=== PATIENT | female | born 1955 | race Caucasian/White ===

== ENCOUNTER → 2016-10-12 | Outpatient (CLI) | payer BC ==
--- NOTE | 2016-10-18 14:51 | MAMMOGRAPHY REPORT ---
BILATERAL DIGITAL SCREENING MAMMOGRAM WITH CAD: 10/12/2016 CLINICAL HISTORY: Routine screening. Patient has no complaints. TECHNIQUE: Bilateral CC and MLO views were obtained. Current study was also evaluated with a Comput er Aided Detection (CAD) system. COMPARISON: Comparison is made to exams dated: 12/25/2006 mammogram, 06/17/2008 mammogram, 06/14/2010 mammogram, and 08/22/2011 mammogram - [facility]. BREAST COMPOSITION: There are scattered areas of fibroglandular density in both breasts. FINDINGS: A 5 mm nodule asymmetry in the lateral right breast appears similar to prior mammograms da ting back to at least 12/25/2006, therefore likely benign. There are a few benign-appearing calcifi cations bilaterally. No new suspicious mass, architectural distortion or cluster of microcalcificat ions is seen. IMPRESSION: ACR BI-RADS CATEGORY 1: NEGATIVE There is no mammographic evidence of malignancy. A 1 year screening mammogram is recommended. The p atient will receive written notification of the results. Approximately 10% of breast cancers are not detected with mammography. A negative mammographic repor t should not delay biopsy if a clinically suggestive mass is present. Lisa Rodriguez M.D. ay/:10/18/2016 14:08:14 College Archivist: Latasha DENISE)(Deuce), [facility] letter sent: Normal 1/2 BI-RADS Code: ACR BI-RADS Category 1: Negative
== END | disposition home or self-care (01) ==
LOC: C.MAMM 12:54
PROVIDERS: ATTEND Obstetrics & Gynecology
DX: Z01.419 Encounter for gynecological examination (general) (routine) without abnormal findings (principal); Z12.31 Encounter for screening mammogram for malignant neoplasm of breast

== ENCOUNTER → 2016-10-12 | Outpatient (CLI) | payer BC | END | disposition home or self-care (01) | LOC: C.PAPS 13:41 | PROVIDERS: ATTEND Obstetrics & Gynecology | DX: Z01.419 Encounter for gynecological examination (general) (routine) without abnormal findings (principal) ==

== ENCOUNTER → 2017-08-09 | Outpatient (CLI) | payer OTHER | END | disposition home or self-care (01) | LOC: C.LABSPEC 12:16 | PROVIDERS: ATTEND Dermatology | DX: R21 Rash and other nonspecific skin eruption (principal) ==

== ENCOUNTER → 2017-08-13 | Outpatient (CLI) | payer OTHER | END | disposition home or self-care (01) | LOC: C.LABMFLN 09:13 | PROVIDERS: ATTEND Family Medicine | DX: R10.9 Unspecified abdominal pain (principal); Z29.9 Encounter for prophylactic measures, unspecified ==

== ENCOUNTER → 2017-09-24 | Outpatient (CLI) | payer OTHER | END | disposition home or self-care (01) | LOC: C.LABSPEC 17:22 | PROVIDERS: ATTEND Dermatology | DX: L71.0 Perioral dermatitis (principal) ==

== ENCOUNTER 2024-05-29 21:16 | Inpatient (IN) ==
[2024-05-29 21:58] LABS: Basophils # (auto) 0.06 K/uL (0.00-0.20); Basophils % (auto) 0.8 %; Eosinophils % (auto) 3.9 %; Hematocrit (blood only) 40.3 % (37.0-47.0); Hemoglobin 13.8 g/dl (12.0-16.0); Immature Granulocytes # (auto) 0.02 K/uL (0.01-0.20); Immature Granulocytes % (auto) 0.3 %; Lymphocytes # (auto) 3.15 K/uL (1.20-3.40); Lymphocytes % (auto) 41.4 %; Mean Corpuscular Hemoglobin 28.5 pg (25.0-34.0); Mean Corpuscular Hgb Conc 34.2 g/dL (32.0-36.0); Mean Corpuscular Volume 83.1 fL (80.0-100.0); Mean Platelet Volume 10.7 fL (9.4-12.4); Monocytes # (auto) 0.63 K/uL (0.11-0.59); Monocytes % (auto) 8.3 %; Neutrophils # (auto) 3.44 K/uL (1.40-6.50); Neutrophils % (auto) 45.3 %; Platelet Count 215 K/uL (130-400); RDW Coefficient of Variation 12.7 % (11.5-14.5); RDW Standard Deviation 38.5 fL (36.4-46.3); Red Blood Count 4.85 M/uL (4.20-5.40)
[2024-05-29 22:11] LABS: Albumin Globulin Ratio 1.4 (0.9-2); Albumin Level 4.2 gm/dl (3.4-5.0); BUN Creatinine Ratio 12.5 (10-20); Bilirubin,Total 0.3 mg/dl (0.2-1.0); Calcium 9.3 mg/dl (8.6-10.3); Creatinine Clr Calc Pharmacy 50.1 ml/min; Total Protein 7.2 gm/dl (6.0-8.3)
[2024-05-29 22:18] LABS: Troponin I High Sensitivity 3.2 pg/ml (0-14)
--- NOTE | 2024-05-29 23:26 | Emergency Department Note ---
Impression & Plan Third degree atrioventricular block, Pre-syncope ED Provider Note NAME: MARK HIDALGO AGE: 69 SEX: F : 1955 ARRIVES VIA: Walk-In INFORMANT: Patient, ED PROVIDER(S): Satish Bautista MD CHIEF COMPLAINT: Presyncope HPI: This is a 69-year-old female presenting for presyncope. Patient states that she had a 2 episodes today where she felt she was about to pass out. She cannot quantify what this meant but just felt she was going to blackout. She felt no palpitations, chest pain, shortness of breath during these episodes. She was sitting down doing nothing when this happened. She has not had this happen before. Her member was a nurse and took a blood pressure of 194/100. No previous history of hypertension. No leg swelling or leg pain otherwise. She does have chronic restless leg syndrome otherwise. ROS: See above HPI for pertinent positives & negatives. A total of 10 systems reviewed and were otherwise negative. PAST MEDICAL HISTORY: See Below PAST SURGICAL HISTORY: See Below FAMILY HISTORY: See Below SOCIAL HISTORY: See Below HOME MEDICATIONS: See Below ALLERGIES: See Below VITALS: See Below PHYSICAL EXAMINATION: General: resting comfortably in no acute distress Head: Normocephalic and atraumatic Eyes: Normal inspection, extraocular muscles intact Ear, nose, throat: Normal external exam Neck: Normal range of motion Respiratory: lungs clear to auscultation bilaterally Cardiovascular: Regular rate/rhythm, no murmur GI: soft, nontender, no guarding or rebound Extremities: nontender, moves all extremities Neuro: The patient awake and alert, appropriately conversive, no focal deficits, symmetric faces Skin: Warm, dry, and intact MEDICAL DECISION MAKING: This is a 69-year-old female sent for presyncope. Will do screening workup that includes CBC, BMP, chest x-ray, troponin and D-dimer. Low concern for acute PE but patient is concerned as her mother had PE. -Patient had a fairly long run of heart block in which patient was in sinus rhythm to nonconducting P waves from 6+ seconds with return of sinus rhythm she was symptomatic during this time -Patient placed on pads at this time -Patient second episode where she went from sinus rhythm to over 10 seconds of P waves with only 1 PVC and then into third-degree heart block followed by sinus rhythm. She was again symptomatic. Pacing was not required. -Discussed care with Dr. Nieto who states Dr. Kelly will evaluate tomorrow for ultimate decision for pacemaker -Bloodwork is reviewed showing no significant leukocytosis, anemia, electrolyte or creatinine abnormality. Negative troponin -Bedside echo performed by me showing normal EF, no RV dilation, no large pericardial effusion -Patient will admitted to hospital service, under Dr. Santana after discussion -Chest Xray independently interpreted by me showing no pneumothorax, focal opacity, or pleural effusions. Differential diagnosis: Tachydysrhythmia, heart block, PE, ACS, anemia, sepsis Independent History obtained from: [facility] interpreted by me: ECG: ECG independently interpreted by me with normal sinus rhythm, rate of 61, normal axis, normal DC, normal QRS, normal QTc, no ST segment elevations consistent with STEMI criteria Cardiac Monitoring: An order was placed for continuous cardiac monitoring. The monitor shows a rate of 80 with sinus rhythm. Critical Care Note: I have personally spent 35 minutes of critical care time in the direct management of this patient. This includes bedside care, interpretation of diagnostic studies, and testing, discussion with consultants, patient, and family members, and other required patient management activities. This 35 minutes is in excess of all separately billable procedures. Past Med/Surg History Problem List (Updated 05/30/24 @ 01:00 by Satish Bautista MD) Pre-syncope (Acute) Third degree atrioventricular block (Acute) Vitamin D insufficiency Bilateral ankle pain Bilateral bunions Vitamin B 12 deficiency Cough BMI 32.0-32.9,adult Bunion Numbness of foot Restless legs syndrome Low back pain Left hip pain Chest pain Asymptomatic postmenopausal state Encounter for mammogram to establish baseline mammogram Chronic low back pain BMI 32.0-32.9,adult Welcome to Medicare preventive visit Pelvic pain Contact with or exposure to other viral diseases Chronic left sacroiliac joint pain Blood in stool Paroxysmal supraventricular tachycardia Left flank pain Hyperlipidemia Nontoxic single thyroid nodule (Acute) Intermittent palpitations Benign essential hypertension Atypical nevi (Acute) Atrioventricular block, Mobitz type 1, Wenckebach (Acute) MTHFR mutation (Acute) Surgical History S/P tubal ligation S/P tonsillectomy H/O oral surgery Family History Father Parkinsons disease Mother Pulmonary embolism Grandmother (Maternal) Colorectal cancer Denies family history of Ovarian cancer Prostate cancer Breast cancer Social History Smoking Status: Never smoker Do You Dip or Chew Tobacco: No; Hx Alcohol Use: Yes Hx Substance Use: No Preferred Language: Greek Feels Safe at Home: Yes Seatbelt Use: always Sunscreen Use: Yes Allergies Allergies Allergy/AdvReac Type Severity Reaction Status Date / Time No Known Drug Allergies Allergy Verified 03/07/24 13:58 Home Meds Home Medications Medication Instructions Recorded Confirmed multivit,mineral-folic acid 800 1 tab PO DAILY 02/04/19 03/07/24 mcg-vit K 100 mcg-herbal no.289 tablet (Alive Once Daily Women 50 Plus) aspirin 81 mg tablet,delayed 81 mg PO .COMPLEX 07/09/23 03/07/24 release magnesium chloride PO 03/07/24 03/07/24 vit [id number]-[id number] fact-FA cmb #2 PO 03/07/24 03/07/24 [Intrinsi [id number]] Previous Rx's Medication Instructions Recorded metoprolol succinate 25 mg 25 mg PO DAILY #90 tabs 09/03/23 tablet,extended release 24 hr Results & Data (ED) Vital Signs Vital Signs - 24 hr 05/29/24 21:19 05/29/24 21:34 05/29/24 21:35 Temperature 36.6 C Temperature Source Temporal Artery Scan Pulse Rate 67 65 64 Pulse Rate from SpO2 Sensor Pulse Rhythm Regular Respiratory Rate 20 18 Respiratory Effort / Characteristics Non-Labored Spontaneous Respiratory Depth Normal Respiratory Pattern Regular Blood Pressure 172/93 H Blood Pressure Mean 119 Blood Pressure Position Sitting Pulse Oximetry 98 97 Oxygen Delivery Method Room Air Room Air Sepsis Recent Fever Within 48 Hours No Sepsis New/Unexplained Change in Mental Status N/A Sepsis Action Taken by Nursing No Action Required 05/29/24 21:39 05/29/24 22:00 05/29/24 22:32 Temperature Temperature Source Pulse Rate 61 62 0 L Pulse Rate from SpO2 Sensor 61 62 Pulse Rhythm Respiratory Rate 15 19 Respiratory Effort / Characteristics Respiratory Depth Respiratory Pattern Blood Pressure 131/79 153/78 H Blood Pressure Mean 96 101 Blood Pressure Position Pulse Oximetry 98 98 Oxygen Delivery Method Room Air Room Air Sepsis Recent Fever Within 48 Hours Sepsis New/Unexplained Change in Mental Status Sepsis Action Taken by Nursing 05/29/24 22:32 05/29/24 22:34 05/29/24 22:39 Temperature Temperature Source Pulse Rate 57 L 64 61 Pulse Rate from SpO2 Sensor 64 62 Pulse Rhythm Respiratory Rate 18 20 Respiratory Effort / Characteristics Respiratory Depth Respiratory Pattern Blood Pressure 130/87 Blood Pressure Mean 104 Blood Pressure Position Pulse Oximetry 99 99 Oxygen Delivery Method Room Air Room Air Sepsis Recent Fever Within 48 Hours Sepsis New/Unexplained Change in Mental Status Sepsis Action Taken by Nursing 05/29/24 22:51 05/29/24 23:03 05/29/24 23:03 Temperature Temperature Source Pulse Rate 62 0 L 0 L Pulse Rate from SpO2 Sensor Pulse Rhythm Respiratory Rate 15 23 Respiratory Effort / Characteristics Respiratory Depth Respiratory Pattern Blood Pressure 136/94 145/68 H Blood Pressure Mean 108 93 Blood Pressure Position Pulse Oximetry 98 Oxygen Delivery Method Room Air Sepsis Recent Fever Within 48 Hours Sepsis New/Unexplained Change in Mental Status Sepsis Action Taken by Nursing 05/29/24 23:05 05/29/24 23:30 05/30/24 00:00 Temperature Temperature Source Pulse Rate 62 64 80 Pulse Rate from SpO2 Sensor 62 64 80 Pulse Rhythm Respiratory Rate 20 22 16 Respiratory Effort / Characteristics Respiratory Depth Respiratory Pattern Blood Pressure 121/89 163/54 H 150/96 H Blood Pressure Mean 95 90 127 Blood Pressure Position Pulse Oximetry 98 98 96 Oxygen Delivery Method Room Air Room Air Room Air Sepsis Recent Fever Within 48 Hours Sepsis New/Unexplained Change in Mental Status Sepsis Action Taken by Nursing Laboratory Data 05/29/24 21:43 05/29/24 21:43 Lab Results 05/29/24 Range/Units 21:43 WBC 7.60 (4.8-10.8) K/ul RBC 4.85 (4.20-5.40) M/uL Hgb 13.8 (12.0-16.0) g/dl Hct 40.3 (37.0-47.0) % MCV 83.1 (80.0-100.0) fL MCH 28.5 (25.0-34.0) pg MCHC 34.2 (32.0-36.0) g/dL RDW Std Deviation 38.5 (36.4-46.3) fL RDW Coeff of Andrew 12.7 (11.5-14.5) % Plt Count 215 (130-400) K/uL MPV 10.7 (9.4-12.4) fL Immature Gran % (Auto) 0.3 % Neut % (Auto) 45.3 % Lymph % (Auto) 41.4 % Crowley % (Auto) 8.3 % Eos % (Auto) 3.9 % Baso % (Auto) 0.8 % Neut # (Auto) 3.44 (1.40-6.50) K/uL Lymph # (Auto) 3.15 (1.20-3.40) K/uL Crowley # (Auto) 0.63 H (0.11-0.59) K/uL Eos # (Auto) 0.30 (0.00-0.50) K/uL Baso # (Auto) 0.06 (0.00-0.20) K/uL Immature Gran # (Auto) 0.02 (0.01-0.20) K/uL D-Dimer 630 H* (0-500) ug/L FEU Sodium 141 (136-145) mmol/L Potassium 4.0 (3.5-5.1) mmol/L Chloride 107 (98-107) mmol/L Carbon Dioxide 28 (21-32) mmol/L Anion Gap 6 (3-11) BUN 14 (6-23) mg/dl Creatinine 1.12 (0.6-1.2) mg/dl Est Cr Clr Drug Dosing 50.1 ml/min eGFR 53.56 BUN/Creatinine Ratio 12.5 (10-20) Glucose 118 H (70-99(Fasting)) mg/dl Calcium 9.3 (8.6-10.3) mg/dl Total Bilirubin 0.3 (0.2-1.0) mg/dl AST 19 (13-39) U/L ALT 29 (7-52) U/L Alkaline Phosphatase 92 (34-104) U/L Troponin I High Sens 3.2 (0-14) pg/ml Total Protein 7.2 (6.0-8.3) gm/dl Albumin 4.2 (3.4-5.0) gm/dl Globulin 3.0 (2.5-4.0) gm/dl Albumin/Globulin Ratio 1.4 (0.9-2) Administered Medications Discontinued Medications Ioversol (Optiray 320 125ml) 125 ml IV ONCE ONE Stop: 05/30/24 00:59 Last Admin: 05/30/24 00:58 Dose: 118 ml Documented By: VALERIE Discharge Plan Visit Data Chief Complaint: Hypertension Stated Complaint: HIGH BP, DIZZY, NEAR SYNCOPE ED Provider: Satish Bautista Discharge Problem: Third degree atrioventricular block, Pre-syncope Forms Stand Alone Forms: My [facility] [employer] Prescriptions Prescriptions: No Action metoprolol succinate 25 mg tablet extended release 24 hr 25 mg PO DAILY Qty: 90 3RF Alive Once Daily Women 50 Plus 800-100 mcg tablet 1 tab PO DAILY aspirin 81 mg tablet,delayed release (DR/EC) 81 mg PO .COMPLEX Rx Instructions: 81 mg orally 3 x per week; vit [id number]-[id number] fact-FA cmb #2 [Intrinsi H50-Ikohax] PO magnesium chloride PO Referrals Referrals: Feliciano Naranjo MD [Primary Care Provider] -
[2024-05-29 23:52] LABS: D Dimer 630 ug/L FEU (0-500)
--- NOTE | 2024-05-30 00:39 | History & Physical Report ---
Date of Service May 30, 2024 Assessment & Plan (1) Pre-syncope: Plan: 69-year-old female with history of paroxysmal SVT on metoprolol 25 mg p.o. nightly, hyperlipidemia and factor V Leiden presenting from home with multiple episodes of presyncope. Several of these episodes witnessed in the ER, seem to be associated with heart block present on monitor. Patient with multiple dropped QRS complexes followed by escape beats. troponin is unremarkable. Electrolytes are within normal limits. Admit to PCU Maintain external pacer pads for the time being - Check Lyme serology. Patient does not spend much time outdoors and denies exposure to ticks Will hold metoprolol - cardiology consultation appreciated. Will keep patient n.p.o. in the event of possible intervention in the morning (2) Third degree atrioventricular block: Plan: Patient with heart block noted on telemetry strip, associated with episodes of dizziness and presyncope. Possibly post-viral? Admit to PCU Maintain pacer pads Hold metoprolol Check 2D echo Plan patient with history of factor V Leiden mutation, family history of VTE. Mildly elevated D-dimer at 630. CTA of the chest negative for acute PE History of Present Illness Chief Complaint: near syncope Primary Care Provider: Feliciano Naranjo MD Ainsley Mcnair is a pleasant 69yo female with history of paroxysmal SVT, hyperlipidemia, factor V Leiden and possible protein C deficiency presenting from home with episodes of presyncope. Patient had an episode this afternoon around 11:00 where she felt lightheaded as though she was going to pass out. During this episode she denies chest pain, palpitations or nausea. She did have some tunneling of her vision and blacked out for a very short period of time but does not think that she actually lost consciousness. She had another episode around 1999 while at her son and ujgzhtto-fg-dbz's house. Her lfhwcmyv-hy-ice checked her blood pressure at that time and found it to be elevated at 194/100. She repeated several minutes later her blood pressure remained elevated at 196/96. Patient was ill last week on 05/21 and 05/22 with a nonspecific viral illness. She reports dizziness, fevers, body aches initially then she developed a head cold. she does not feel as though she has completely recovered from this illness Patient denies fever, chills, chest pain, palpitations, shortness of breath. Denies abdominal pain, vomiting. Reports that she is eating well. In the ER patient with several episodes where she became dizzy. He seemed to be more frequent while she is laying on her left side. Noted to have heart block with dropped QRS complexes during her times of dizziness. Limited bedside echo performed by ER attending with no obvious structural abnormality Allergies Allergy/AdvReac Type Severity Reaction Status Date / Time No Known Drug Allergies Allergy Verified 05/30/24 01:44 Home Medications Medication Instructions Recorded Confirmed Type multivit,mineral-folic acid 800 1 tab PO DAILY 02/04/19 05/30/24 History mcg-vit K 100 mcg-herbal no.289 tablet (Alive Once Daily Women 50 Plus) aspirin 81 mg tablet,delayed 81 mg PO .COMPLEX 07/09/23 05/30/24 History release metoprolol succinate 25 mg 25 mg PO DAILY #90 tabs 09/03/23 05/30/24 Rx tablet,extended release 24 hr vit Q66-scttbel fact-FA cmb #2 PO 03/07/24 03/07/24 History [Intrinsi [id number]] magnesium chloride 64 mg 64 mg PO DAILY 05/30/24 05/30/24 History (magnesium chloride) tablet Past Med/Surg History Problem List Pre-syncope (Acute) Third degree atrioventricular block (Acute) Vitamin D insufficiency Bilateral ankle pain Bilateral bunions Vitamin B 12 deficiency Cough BMI 32.0-32.9,adult Bunion Numbness of foot Restless legs syndrome Low back pain Left hip pain Chest pain Asymptomatic postmenopausal state Encounter for mammogram to establish baseline mammogram Chronic low back pain BMI 32.0-32.9,adult Welcome to Medicare preventive visit Pelvic pain Contact with or exposure to other viral diseases Chronic left sacroiliac joint pain Blood in stool Paroxysmal supraventricular tachycardia Left flank pain Hyperlipidemia Nontoxic single thyroid nodule (Acute) Intermittent palpitations Benign essential hypertension Atypical nevi (Acute) Atrioventricular block, Mobitz type 1, Wenckebach (Acute) MTHFR mutation (Acute) Surgical History S/P tubal ligation S/P tonsillectomy H/O oral surgery Family History Father Parkinsons disease Mother Pulmonary embolism Grandmother (Maternal) Colorectal cancer Denies family history of Ovarian cancer Prostate cancer Breast cancer Social History Smoking Status: Never smoker Do You Dip or Chew Tobacco: No; Hx Alcohol Use: Yes Hx Substance Use: No Preferred Language: Malaysian Feels Safe at Home: Yes Seatbelt Use: always Sunscreen Use: Yes Review of Systems Review of Systems: All systems reviewed & are unremarkable except as noted in HPI & below Physical Exam Physical Exam: General: patient resting comfortably, NAD, non-toxic in appearance, AA&O x 4 Skin: warm, dry, intact, no rashes or lesions HEENT: NC/AT, PERRL, EOMI, anicteric sclera, conjunctiva without injection, external ear normal to inspection and nontender, nares patent, moist mucus membranes, dentition intact, no oropharyngeal lesions, neck supple, trachea midline, no LAD, no thyromegaly, no JVD Heart: +S1/S2, regular, Bradycardic,no m/r/g, external pacer pads in place on chest wall Lungs: equal air entry bilaterally, no rales/rhonchi/wheezes Abd: +BS, soft, NT/ND, no masses/organomegaly/ascites Ext: warm, 2+ pulses in UE/LE bilaterally, no clubbing/cyanosis or edema Neuro: nonfocal, patient AA&O x 4, speech intact, no facial droop, moving all extremities on command with equal strength 5/5 Results & Data Results & Data Vital Signs (Past 12 Hours) Vital Signs Temp Pulse Resp BP Pulse Ox O2 Del Method 05/30/24 00:00 80 16 150/96 H 96 Room Air 05/29/24 23:30 64 22 163/54 H 98 Room Air 05/29/24 23:05 62 20 121/89 98 Room Air 05/29/24 23:03 0 L 05/29/24 23:03 0 L 23 145/68 H 98 Room Air 05/29/24 22:51 62 15 136/94 05/29/24 22:39 61 20 99 Room Air 05/29/24 22:34 64 18 130/87 99 Room Air 05/29/24 22:32 57 L 05/29/24 22:32 0 L 05/29/24 22:00 62 19 153/78 H 98 Room Air 05/29/24 21:39 61 15 131/79 98 Room Air 05/29/24 21:35 64 18 97 Room Air 05/29/24 21:34 65 05/29/24 21:19 36.6 C 67 20 172/93 H 98 Room Air Laboratory Results Laboratory Results WBC 7.60 K/ul (4.8-10.8) 05/29/24 21:43 RBC 4.85 M/uL (4.20-5.40) 05/29/24 21:43 Hgb 13.8 g/dl (12.0-16.0) 05/29/24 21:43 Hct 40.3 % (37.0-47.0) 05/29/24 21:43 MCV 83.1 fL (80.0-100.0) 05/29/24 21:43 MCH 28.5 pg (25.0-34.0) 05/29/24 21:43 MCHC 34.2 g/dL (32.0-36.0) 05/29/24 21:43 RDW Std Deviation 38.5 fL (36.4-46.3) 05/29/24 21:43 RDW Coeff of Andrew 12.7 % (11.5-14.5) 05/29/24 21:43 Plt Count 215 K/uL (130-400) 05/29/24 21:43 MPV 10.7 fL (9.4-12.4) 05/29/24 21:43 Immature Gran % (Auto) 0.3 % 05/29/24 21:43 Neut % (Auto) 45.3 % 05/29/24 21:43 Lymph % (Auto) 41.4 % 05/29/24 21:43 Sevier % (Auto) 8.3 % 05/29/24 21:43 Eos % (Auto) 3.9 % 05/29/24 21:43 Baso % (Auto) 0.8 % 05/29/24 21:43 Neut # (Auto) 3.44 K/uL (1.40-6.50) 05/29/24 21:43 Lymph # (Auto) 3.15 K/uL (1.20-3.40) 05/29/24 21:43 Sevier # (Auto) 0.63 K/uL (0.11-0.59) H 05/29/24 21:43 Eos # (Auto) 0.30 K/uL (0.00-0.50) 05/29/24 21:43 Baso # (Auto) 0.06 K/uL (0.00-0.20) 05/29/24 21:43 Immature Gran # (Auto) 0.02 K/uL (0.01-0.20) 05/29/24 21:43 D-Dimer 630 ug/L FEU (0-500) H* 05/29/24 21:43 Sodium 141 mmol/L (136-145) 05/29/24 21:43 Potassium 4.0 mmol/L (3.5-5.1) 05/29/24 21:43 Chloride 107 mmol/L (98-107) 05/29/24 21:43 Carbon Dioxide 28 mmol/L (21-32) 05/29/24 21:43 Anion Gap 6 (3-11) 05/29/24 21:43 BUN 14 mg/dl (6-23) 05/29/24 21:43 Creatinine 1.12 mg/dl (0.6-1.2) 05/29/24 21:43 Est Cr Clr Drug Dosing 50.1 ml/min 05/29/24 21:43 eGFR 53.56 05/29/24 21:43 BUN/Creatinine Ratio 12.5 (10-20) 05/29/24 21:43 Glucose 118 mg/dl (70-99(Fasting)) H 05/29/24 21:43 Calcium 9.3 mg/dl (8.6-10.3) 05/29/24 21:43 Magnesium 2.1 mg/dl (1.7-2.4) 05/29/24 21:43 Total Bilirubin 0.3 mg/dl (0.2-1.0) 05/29/24 21:43 AST 19 U/L (13-39) 05/29/24 21:43 ALT 29 U/L (7-52) 05/29/24 21:43 Alkaline Phosphatase 92 U/L (34-104) 05/29/24 21:43 Troponin I High Sens 3.2 pg/ml (0-14) 05/29/24 21:43 Total Protein 7.2 gm/dl (6.0-8.3) 05/29/24 21:43 Albumin 4.2 gm/dl (3.4-5.0) 05/29/24 21:43 Globulin 3.0 gm/dl (2.5-4.0) 05/29/24 21:43 Albumin/Globulin Ratio 1.4 (0.9-2) 05/29/24 21:43 Impressions Chest X-Ray 05/29/24 23:29 Exam(s): XR CXR 1 VIEW EXAM: XR Chest, 1 View CLINICAL HISTORY: Reason for exam: syncope. TECHNIQUE: Frontal view of the chest. COMPARISON: None. FINDINGS: Lungs: Bilateral bronchial wall and perihilar interstitial thickening. No consolidation. Pleural space: No pleural effusion. No pneumothorax. Heart: Unremarkable. No cardiomegaly. Mediastinum: Unremarkable. Normal mediastinal contour. Bones/joints: Unremarkable. No acute fracture. Other findings: An elevated right hemidiaphragm.. IMPRESSION: Bilateral bronchial wall and perihilar mild interstitial thickening. No consolidation. An elevated right hemidiaphragm. . Electronically signed by: Hossein Javier MD, DABR 05/30/24 01:15 AM Chest CTA 05/30/24 00:39 EXAM: CT angio chest PE protocol CLINICAL HISTORY: 118 ML OPTIRAY 320, EVAL FOR PE, CHEST PAIN TECHNIQUE: Contiguous axial images were obtained from the neck base through the upper abdomen following intravenous administration of iodinated contrast material. Angiographic images were processed, 3D MIP images were acquired for interpretation. If IV contrast material had not been administered, the likelihood of detecting abnormalities relevant to the patient's condition would have been substantially decreased. Coronal and sagittal 3-D MIPs were likewise performed and indicated to increase the sensitivity of detectin diffuse clinically relevant pathology. CT scan was performed according to ALARA (as low as reasonable achievable). COMPARISON: None. FINDINGS: Adequate contrast bolus without evidence of pulmonary embolism. The central airways are patent. The lungs are clear. No pleural effusion. The heart, aorta, and pulmonary arteries are of normal size and configuration. There are no appreciable coronary artery and aortic atherosclerotic calcifications. No pericardial effusion is identified. The thyroid is unremarkable. No mediastinal, hilar, or axillary lymphadenopathy is noted. No suspicious lytic or sclerotic osseous lesions are identified. IMPRESSION: 1. No evidence of pulmonary embolism or pulmonary disease. Electronically signed by Ricky Winter 05-30-2024 02:11 AM ECG Additional Comments: EKG with normal sinus rhythm at 61 bpm, normal axis, GA = 192, QRS = 78, QTc = 394, no acute ischemic changes present Code Status & VTE Plan VTE Prophylaxis Plan VTE Prophylaxis will be ordered: Yes PG Care Time/CCT Total # of Minutes Spent Total Time Spent with Patient: Total time spent is greater than 50% in coordination of care (as documented) at patient's floor/unit and/or counseling patient: Coding Level of Care Code 60849 INT INP/OBS CARE 3/75MIN Diagnoses Pre-syncope R55 Third degree atrioventricular block I44.2
[2024-05-30] MEDS: OPTIRAY 320 125ml IV ONE (00:58)
--- NOTE | 2024-05-30 01:17 | XRay Report ---
Exam(s): XR CXR 1 VIEW EXAM: XR Chest, 1 View CLINICAL HISTORY: Reason for exam: syncope. TECHNIQUE: Frontal view of the chest. COMPARISON: None. FINDINGS: Lungs: Bilateral bronchial wall and perihilar interstitial thickening. No consolidation. Pleural space: No pleural effusion. No pneumothorax. Heart: Unremarkable. No cardiomegaly. Mediastinum: Unremarkable. Normal mediastinal contour. Bones/joints: Unremarkable. No acute fracture. Other findings: An elevated right hemidiaphragm.. IMPRESSION: Bilateral bronchial wall and perihilar mild interstitial thickening. No consolidation. An elevated right hemidiaphragm. . Electronically signed by: Hossein Javier MD, DABR 05/30/24 01:15 AM
--- NOTE | 2024-05-30 02:11 | CT Scan Report ---
EXAM: CT angio chest PE protocol CLINICAL HISTORY: 118 ML OPTIRAY 320, EVAL FOR PE, CHEST PAIN TECHNIQUE: Contiguous axial images were obtained from the neck base through the upper abdomen following intravenous administration of iodinated contrast material. Angiographic images were processed, 3D MIP images were acquired for interpretation. If IV contrast material had not been administered, the likelihood of detecting abnormalities relevant to the patient's condition would have been substantially decreased. Coronal and sagittal 3-D MIPs were likewise performed and indicated to increase the sensitivity of detectin diffuse clinically relevant pathology. CT scan was performed according to ALARA (as low as reasonable achievable). COMPARISON: None. FINDINGS: Adequate contrast bolus without evidence of pulmonary embolism. The central airways are patent. The lungs are clear. No pleural effusion. The heart, aorta, and pulmonary arteries are of normal size and configuration. There are no appreciable coronary artery and aortic atherosclerotic calcifications. No pericardial effusion is identified. The thyroid is unremarkable. No mediastinal, hilar, or axillary lymphadenopathy is noted. No suspicious lytic or sclerotic osseous lesions are identified. IMPRESSION: 1. No evidence of pulmonary embolism or pulmonary disease. Electronically signed by Ricky Winter 05-30-2024 02:11 AM
[2024-05-30 04:36] LABS: Magnesium 2.1 mg/dl (1.7-2.4)
--- NOTE | 2024-05-30 09:31 | XCELERA ---
[id number]
[2024-05-30 11:18] LABS: T4 Free Thyroxine 0.83 ng/dl (0.61-1.60)
--- NOTE | 2024-05-30 11:19 | Cardiology Consultation ---
Date of Consultation May 30, 2024 Assessment & Plan (1) Pre-syncope: (2) Third degree atrioventricular block: Plan 1. Presyncope: Her episodes of presyncope are associated with complete heart block and associated ventricular asystole. This seems to be a good correlation based on her recorded telemetry. 2. Complete heart block: Unusual in her demographic. Baseline EKG is entirely normal with a narrow QRS. She did not test positive for Lyme disease which could affect AV conduction. Thyroid studies are normal. Possibly a correlation with other viral illnesses, but this is less well-established. No evidence of myocarditis based on her echocardiogram and normal biomarkers. She does not appear to have a strong family history of conduction disease. Rare possibility of an infiltrative process such as amyloid or sarcoid, but this seems less likely in the absence of additional baseline conduction disease. She is on low- dose metoprolol. She has been on this medication for a couple of years. While this could exacerbate AV henrietta disease, I doubt this is the sole etiology. Will certainly stop the medication for now. In the absence of a known etiology or reversible cause my concern is continued and unpredictable episodes of AV block. This could result in true syncope with associated injury. I expressed this concern to the patient. I did recommend a permanent pacemaker based on the absence of a known reversible cause. She is understandably reluctant given her otherwise good health. History of Present Illness Reason for Consultation: Near syncope, heart block Requesting Physician: Max Attending Physician: Jatin Christensen MD History of Present Illness The patient is a 69-year-old woman without a known history of cardiac disease who presented to the hospital after suffering a few episodes of dizziness and presyncope. Patient states that a few days ago she did develop what she feels was an upper respiratory illness. This involved some upper respiratory symptoms and a fever. She has been improving but still has some mild symptoms and fatigue. Yesterday while sitting at her computer she had an episode of presyncope. This was not preceded by any sense of palpitation, nausea or other symptoms. Without intervention the episode resolved and she returned to her usual activity. She had a second episode later in the day which was similar in nature, duration and character. Again, no prodrome. At that time her blood pressure was measured and it was notably elevated. Based on the symptoms and the elevated blood pressure she went to the emergency room for an evaluation. While in the emergency room and on telemetry she had a recurrent episode and documented complete heart block with ventricular asystole. The episode was transient and resolved. She did not lose consciousness. She had a few other episodes which were similar since admission. She does have a history of SVT. This was documented on outpatient monitoring in 2018. These episodes did also produce some presyncope, but were associated with a rapid heart rate. She was placed on metoprolol at that time and has had few episodes. Generally speaking she is an active individual. She does not have exertional symptoms. No difficulty with breathing. No symptoms of chest pain. Currently feeling well. Allergies Allergy/AdvReac Type Severity Reaction Status Date / Time No Known Drug Allergies Allergy Verified 05/30/24 01:44 Home Medications Medication Instructions Recorded Confirmed Type multivit,mineral-folic acid 800 1 tab PO DAILY 02/04/19 05/30/24 History mcg-vit K 100 mcg-herbal no.289 tablet (Alive Once Daily Women 50 Plus) aspirin 81 mg tablet,delayed 81 mg PO .COMPLEX 07/09/23 05/30/24 History release metoprolol succinate 25 mg 25 mg PO DAILY #90 tabs 09/03/23 05/30/24 Rx tablet,extended release 24 hr vit [id number] fact-FA cmb #2 PO 03/07/24 03/07/24 History [Intrinsi [id number]] magnesium chloride 64 mg 64 mg PO DAILY 05/30/24 05/30/24 History (magnesium chloride) tablet Patient History Surgical History S/P tubal ligation S/P tonsillectomy H/O oral surgery Family History Father Parkinsons disease Mother Pulmonary embolism Grandmother (Maternal) Colorectal cancer Denies family history of Ovarian cancer Prostate cancer Breast cancer Social History Smoking Status: Never smoker Do You Dip or Chew Tobacco: No; Hx Alcohol Use: Yes Alcohol type: wine Hx Substance Use: No Preferred Language: [place] Communication Ability: Effective Rooms Director Required: No Beliefs That Will Affect Care: None Current Living Situation: Alone Feels Safe at Home: Yes Seatbelt Use: always Sunscreen Use: Yes Review of Systems Review of Systems: Per HPI Physical Exam Physical Exam: She is alert and oriented x3. Mood affect appear normal. She answered all questions appropriately. HEENT: Sclerae are anicteric. Pupils are equal and reactive to light and accommodation. Extraocular movements were intact. Neuro: Cranial nerves intact Lungs: Lungs are clear to auscultation bilaterally. There are no rales wheezes or rhonchi. She has normal respiratory effort without use of accessory muscles. There is normal pulmonary excursion. Cardiac: The rhythm was regular. S1 and S2 were normal. There are no murmurs on examination. The PMI was not markedly displaced on palpation. Extremities: Patient has bilateral radial pulses that are equal in intensity. There is no evidence cyanosis or clubbing. There was no evidence of significant peripheral edema bilaterally. Skin: There are no rashes noted on examination today. Results & Data Vital Signs (Past 12 Hours) Vital Signs Temp Pulse Pulse Resp BP BP Pulse Ox 05/30/24 11:06 36.9 C 71 18 157/95 H 94 05/30/24 07:36 79 05/30/24 07:34 62 05/30/24 07:14 36.7 C 66 18 141/83 H 98 05/30/24 04:30 68 05/30/24 04:02 36.6 C 71 18 144/81 H 97 05/30/24 03:42 83 19 145/79 H 97 05/30/24 03:26 148/80 H 05/30/24 03:21 66 22 97 05/30/24 02:48 69 20 95 05/30/24 02:37 72 05/30/24 02:30 73 21 117/71 94 05/30/24 02:06 75 21 96/74 L 96 05/30/24 01:00 79 24 133/69 97 05/30/24 00:56 0 L 05/30/24 00:30 63 17 147/77 H 96 05/30/24 00:00 80 16 150/96 H 96 05/29/24 23:30 64 22 163/54 H 98 O2 Del Method 05/30/24 11:06 Room Air 05/30/24 07:36 05/30/24 07:34 05/30/24 07:14 Room Air 05/30/24 04:30 05/30/24 04:02 Room Air 05/30/24 03:42 Room Air 05/30/24 03:26 05/30/24 03:21 Room Air 05/30/24 02:48 Room Air 05/30/24 02:37 05/30/24 02:30 Room Air 05/30/24 02:06 Room Air 05/30/24 01:00 Room Air 05/30/24 00:56 05/30/24 00:30 Room Air 05/30/24 00:00 Room Air 05/29/24 23:30 Room Air Laboratory Results Abnormal Lab Results 05/29/24 21:43 WBC 7.60 RBC 4.85 Hgb 13.8 Hct 40.3 MCV 83.1 MCH 28.5 MCHC 34.2 RDW Std Deviation 38.5 RDW Coeff of Andrew 12.7 Plt Count 215 MPV 10.7 Immature Gran % (Auto) 0.3 Neut % (Auto) 45.3 Lymph % (Auto) 41.4 [place] % (Auto) 8.3 Eos % (Auto) 3.9 Baso % (Auto) 0.8 Neut # (Auto) 3.44 Lymph # (Auto) 3.15 [place] # (Auto) 0.63 H Eos # (Auto) 0.30 Baso # (Auto) 0.06 Immature Gran # (Auto) 0.02 D-Dimer 630 H* Sodium 141 Potassium 4.0 Chloride 107 Carbon Dioxide 28 Anion Gap 6 BUN 14 Creatinine 1.12 Est Cr Clr Drug Dosing 50.1 eGFR 53.56 BUN/Creatinine Ratio 12.5 Glucose 118 H Calcium 9.3 Magnesium 2.1 Total Bilirubin 0.3 AST 19 ALT 29 Alkaline Phosphatase 92 Troponin I High Sens 3.2 Total Protein 7.2 Albumin 4.2 Globulin 3.0 Albumin/Globulin Ratio 1.4 Lyme Disease Screen Negative Diagnostic Findings Echocardiogram 05/30/2024: Normal LV systolic function. No significant valvular heart disease. Essentially normal echocardiogram. Chest CTA did not demonstrate evidence of pulmonary embolus. No notable abnormalities. ECG Additional Comments: EKG at the time of admission revealed normal sinus rhythm. Normal EKG. PG Care Time/CCT Total # of Minutes Spent Total Time Spent with Patient: Total time spent is greater than 50% in coordination of care (as documented) at patient's floor/unit and/or counseling patient: Coding Level of Care Code 87341 INT INP/OBS CARE MIN Diagnoses Pre-syncope R55 Third degree atrioventricular block I44.2
--- NOTE | 2024-05-30 12:03 | Hospitalist Progress Note ---
Date of Service May 30, 2024 Assessment & Plan (1) Pre-syncope: Plan: Transient episodes of complete heart block with ventricular standstill. Telemetry. Cardiology consultation noted. Echo is normal. Thyroid profile is normal. Metoprolol has been discontinued. (2) Third degree atrioventricular block: Plan: Transient complete heart block with ventricular standstill noted on telemetry while in the ED. Metoprolol has been discontinued. Cardiology consultation appreciated. Continue telemetry. External pacer pads are in place. 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 Will defer treatment to her PCP. Chest CTA on admission negative for PE Plan If stable, probably home May 31 off metoprolol and with a heart monitor. Admission and Anticipated Discharge Date Admission Date: May 30, 2024 Subjective Alert and oriented. External pacer pads are in place. Cardiac echo was normal. Cardiology consultation noted. Permanent pacemaker has been recommended but she is hesitant at this time. Metoprolol has been discontinued. She probably will go home with a heart monitor tomorrow, May 31, and follow-up with cardiology as an outpatient for further discussion. Review of Systems 2 Review of Systems: Constitutionalno fever or chills ENTno blurred vision, no double vision, no epistaxis, no sore throat Respiratoryno cough, no wheezing, no shortness of breath Cardiacno palpitations, no chest pain. Near syncope has occurred several times Rosa nausea, vomiting, diarrhea, melena, hematochezia GUno urinary retention, no urinary incontinence, no dysuria, no hematuria Musculoskeletalno joint pain, no muscle tenderness Skinno bruising, no rashes, no pruritus Neurono isolated weakness, no paresthesia. Psychno depression, no anxiety Physical Exam 2 Physical Exam: General-alert and oriented x3, no fever, no chills HEENT-head atraumatic and normocephalic, pupils equal and reactive to light, extraocular muscles intact Neck-no lymphadenopathy or thyromegaly, trachea midline Chest-clear to auscultation. No rales, wheezing or rhonchi Cardiac-regular rate and rhythm, normal S1 and S2 Abdomen-normal bowel sounds, no hepatosplenomegaly Extremities-no cyanosis, clubbing, or edema Neuro-cranial nerves II through XII intact, motor and sensory function within normal limits, strength symmetrical, no focal deficits Psych-normal affect, normal mood Results & Data Results & Data Vital Signs (Past 12 Hours) Vital Signs Temp Pulse Pulse Resp BP BP Pulse Ox 05/30/24 11:06 36.9 C 71 18 157/95 H 94 05/30/24 07:36 79 05/30/24 07:34 62 05/30/24 07:14 36.7 C 66 18 141/83 H 98 05/30/24 04:30 68 05/30/24 04:02 36.6 C 71 18 144/81 H 97 05/30/24 03:42 83 19 145/79 H 97 05/30/24 03:26 148/80 H 05/30/24 03:21 66 22 97 05/30/24 02:48 69 20 95 05/30/24 02:37 72 05/30/24 02:30 73 21 117/71 94 05/30/24 02:06 75 21 96/74 L 96 05/30/24 01:00 79 24 133/69 97 05/30/24 00:56 0 L 05/30/24 00:30 63 17 147/77 H 96 05/30/24 00:00 80 16 150/96 H 96 O2 Del Method 05/30/24 11:06 Room Air 05/30/24 07:36 05/30/24 07:34 05/30/24 07:14 Room Air 05/30/24 04:30 05/30/24 04:02 Room Air 05/30/24 03:42 Room Air 05/30/24 03:26 05/30/24 03:21 Room Air 05/30/24 02:48 Room Air 05/30/24 02:37 05/30/24 02:30 Room Air 05/30/24 02:06 Room Air 05/30/24 01:00 Room Air 05/30/24 00:56 05/30/24 00:30 Room Air 05/30/24 00:00 Room Air Laboratory Results 05/29/24 21:43 05/29/24 21:43 PG Care Time/CCT Total # of Minutes Spent Total Time Spent with Patient: Total time spent is greater than 50% in coordination of care (as documented) at patient's floor/unit and/or counseling patient: Coding Level of Care Code 89862 SUB INP/OBS CARE 3/50MIN Diagnoses Pre-syncope R55 Third degree atrioventricular block I44.2 Factor V deficiency D68.2
--- NOTE | 2024-05-30 15:46 | Electrocardiogram Report ---
Test Reason : Blood Pressure : */* mmHG Vent. Rate : 61 BPM Atrial Rate : 61 BPM P-R Int : 192 ms QRS Dur : 78 ms QT Int : 392 ms P-R-T Axes : 36 43 45 degrees QTcB Int : 394 ms Normal sinus rhythm Normal ECG No previous ECGs available Confirmed by Mathieu Kelly ([id number]) on 05/30/2024 3:46:08 PM Referred By: REFERRED SELF Confirmed By: Mathieu Kelly
[2024-05-31 07:52] LABS: Hematocrit (blood only) 41.7 % (37.0-47.0); Hemoglobin 14.1 g/dl (12.0-16.0); Mean Corpuscular Hemoglobin 28.3 pg (25.0-34.0); Mean Corpuscular Hgb Conc 33.8 g/dL (32.0-36.0); Mean Corpuscular Volume 83.6 fL (80.0-100.0); Mean Platelet Volume 10.5 fL (9.4-12.4); Platelet Count 205 K/uL (130-400); RDW Coefficient of Variation 12.9 % (11.5-14.5); RDW Standard Deviation 38.9 fL (36.4-46.3); Red Blood Count 4.99 M/uL (4.20-5.40); White Blood Count 6.62 K/ul (4.8-10.8)
[2024-05-31 07:57] LABS: BUN Creatinine Ratio 15.3 (10-20); Calcium 8.9 mg/dl (8.6-10.3); Creatinine Clr Calc Pharmacy 57.3 ml/min; Potassium 4.2 mmol/L (3.5-5.1)
[2024-05-31] MEDS: ACETAMINOPHEN 325 MG TAB PO PRN (12:00)
--- NOTE | 2024-05-31 12:48 | Hospitalist Progress Note ---
Date of Service May 31, 2024 Assessment & Plan (1) Pre-syncope: Plan: Recurrent episodes of complete heart block with ventricular standstill. Telemetry. Cardiology consultation noted. Echo is normal. Thyroid profile is normal. Metoprolol has been discontinued. PPM will be placed on June 02. Metoprolol can be restarted after the pacemaker is inserted and hopefully she can go home on June 03 (2) Third degree atrioventricular block: Plan: Transient complete heart block with ventricular standstill continues to occur and noted on telemetry strips. 1 episode approached 10 seconds and she was near syncopal. Metoprolol has been discontinued. Cardiology consultation appreciated. Permanent pacemaker insertion scheduled for June 02. Metoprolol can be restarted after the pacemaker is in place for control of her recurrent SVT. Continue telemetry. External pacer pads are in place. 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 Will defer treatment to her PCP. Chest CTA on admission negative for PE Plan Permanent pacemaker insertion on June 02. Metoprolol can be restarted afterwards. Hopefully she can go home on June 03 Admission and Anticipated Discharge Date Admission Date: May 30, 2024 Subjective Alert and oriented to the time of my examination. Telemetry continues to reveal episodes of atrial activity with ventricular standstill. 1 episode approached 10 seconds and the patient had a near syncopal episode. She has been off the metoprolol now since admission. She needs a permanent cardiac pacemaker placed and this will be done on June 02. The patient is agreeable to this approach. Metoprolol can be restarted after the pacemaker is in place for control of recurrent PSVT Review of Systems 2 Review of Systems: Constitutionalno fever or chills ENTno blurred vision, no double vision, no epistaxis, no sore throat Respiratoryno cough, no wheezing, no shortness of breath Cardiacno palpitations, no chest pain. Near syncope has occurred several times Rosa nausea, vomiting, diarrhea, melena, hematochezia GUno urinary retention, no urinary incontinence, no dysuria, no hematuria Musculoskeletalno joint pain, no muscle tenderness Skinno bruising, no rashes, no pruritus Neurono isolated weakness, no paresthesia. Psychno depression, no anxiety Physical Exam 2 Physical Exam: General-alert and oriented x3, no fever, no chills HEENT-head atraumatic and normocephalic, pupils equal and reactive to light, extraocular muscles intact Neck-no lymphadenopathy or thyromegaly, trachea midline Chest-clear to auscultation. No rales, wheezing or rhonchi Cardiac-regular rate and rhythm, normal S1 and S2 Abdomen-normal bowel sounds, no hepatosplenomegaly Extremities-no cyanosis, clubbing, or edema Neuro-cranial nerves II through XII intact, motor and sensory function within normal limits, strength symmetrical, no focal deficits Psych-normal affect, normal mood Results & Data Results & Data Vital Signs (Past 12 Hours) Vital Signs Temp Pulse Pulse Resp BP Pulse Ox O2 Del Method 05/31/24 11:01 36.9 C 67 18 144/90 H 94 Room Air 05/31/24 07:26 61 05/31/24 07:03 37.1 C 73 17 110/74 93 Room Air 05/31/24 03:26 36.8 C 61 18 107/69 95 Room Air Laboratory Results 05/31/24 06:58 05/31/24 06:58 PG Care Time/CCT Total # of Minutes Spent Total Time Spent with Patient: Total time spent is greater than 50% in coordination of care (as documented) at patient's floor/unit and/or counseling patient: Coding Level of Care Code 15947 SUB INP/OBS CARE 2/35MIN Diagnoses Pre-syncope R55 Third degree atrioventricular block I44.2 Factor V deficiency D68.2
--- NOTE | 2024-05-31 15:01 | Cardiology Progress Note ---
Date of Service May 31, 2024 Assessment & Plan (1) Third degree atrioventricular block: (2) Pre-syncope: Admission and Anticipated Discharge Date Admission Date: May 30, 2024 Supervising Physician Co-Signing Physician Notes Plan reviewed with Dr. Kelly-for PPM on Sunday. Keep on monitor for now. Subjective Called with long pauses and CHB. Pt in bed without symptoms. Pt remains agreeable for PPM on Sunday with Dr. Kelly. Questions answered. Pt and daughter in room. Review of Systems Review of Systems: All systems reviewed & are unremarkable except as noted in HPI & below Physical Exam Physical Exam: AAO x 3 in NAD Respiratory: CTA b/l Cardiovascular: regular no murmurs Results & Data Vital Signs (Past 12 Hours) Vital Signs Temp Pulse Pulse Resp BP Pulse Ox O2 Del Method 05/31/24 14:00 76 05/31/24 11:01 36.9 C 67 18 144/90 H 94 Room Air 05/31/24 07:26 61 05/31/24 07:03 37.1 C 73 17 110/74 93 Room Air 05/31/24 03:26 36.8 C 61 18 107/69 95 Room Air Laboratory Results Abnormal lab results 05/31/24 Range/Units 06:58 Chloride 111 H (98-107) mmol/L Glucose 117 H (70-99(Fasting)) mg/dl
--- NOTE | 2024-06-01 10:29 | Cardiology Progress Note ---
Date of Service June 01, 2024 Assessment & Plan (1) Third degree atrioventricular block: (2) Pre-syncope: Plan for DDD PPM tomorrow with Dr. Kelly no changes made NPO P MN tonight Admission and Anticipated Discharge Date Admission Date: May 30, 2024 Subjective No new issues overnight. Relocated to a new private room. Awaiting PPM tomorrow. Pt in room with her 2 sons. Questions answered. Review of Systems Review of Systems: All systems reviewed & are unremarkable except as noted in HPI & below Physical Exam Physical Exam: AAO x 3 in NAD no change in exam Results & Data Vital Signs (Past 12 Hours) Vital Signs Temp Pulse Pulse Resp BP Pulse Ox O2 Del Method 06/01/24 08:31 36.8 C 77 18 143/91 H 96 Room Air 06/01/24 05:50 66 06/01/24 02:40 36.8 C 63 18 118/72 95 Room Air 05/31/24 22:53 36.8 C 73 18 154/83 H 99 Room Air 05/31/24 22:45 65 Medications Administered Current Inpatient Medications Acetaminophen (Acetaminophen 325 Mg Tab) 650 mg PO Q4H PRN PRN Reason: Pain or Fever Stop: 06/29/24 04:09 Last Admin: 05/31/24 12:00 Dose: 650 mg
--- NOTE | 2024-06-01 14:34 | Hospitalist Progress Note ---
Date of Service June 01, 2024 Assessment & Plan (1) Pre-syncope: Plan: Recurrent episodes of complete heart block with ventricular standstill. Telemetry. Cardiology consultation noted. Echo is normal. Thyroid profile is normal. Metoprolol has been discontinued. PPM will be placed on June 02. Metoprolol can be restarted after the pacemaker is inserted and hopefully she can go home on June 03 (2) Third degree atrioventricular block: Plan: Transient complete heart block with ventricular standstill continues to occur and noted on telemetry strips. 1 episode approached 10 seconds and she was near syncopal. Metoprolol has been discontinued. Cardiology consultation appreciated. Permanent pacemaker insertion scheduled for June 02. Metoprolol can be restarted after the pacemaker is in place for control of her recurrent SVT. Continue telemetry. External pacer pads are in place. 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 Will defer treatment to her PCP. Chest CTA on admission negative for PE Plan Permanent pacemaker insertion tomorrowJune 02. Metoprolol can be restarted afterwards. Hopefully she can go home on June 03 Admission and Anticipated Discharge Date Admission Date: May 30, 2024 Subjective No recurrent third-degree AV block since documentation yesterday. She remains off metoprolol. Cardiology entry noted. Permanent pacemaker placement tomorrowJune 02 Review of Systems 2 Review of Systems: Constitutionalno fever or chills ENTno blurred vision, no double vision, no epistaxis, no sore throat Respiratoryno cough, no wheezing, no shortness of breath Cardiacno palpitations, no chest pain. Near syncope has occurred several times Rosa nausea, vomiting, diarrhea, melena, hematochezia GUno urinary retention, no urinary incontinence, no dysuria, no hematuria Musculoskeletalno joint pain, no muscle tenderness Skinno bruising, no rashes, no pruritus Neurono isolated weakness, no paresthesia. Psychno depression, no anxiety Physical Exam 2 Physical Exam: General-alert and oriented x3, no fever, no chills HEENT-head atraumatic and normocephalic, pupils equal and reactive to light, extraocular muscles intact Neck-no lymphadenopathy or thyromegaly, trachea midline Chest-clear to auscultation. No rales, wheezing or rhonchi Cardiac-regular rate and rhythm, normal S1 and S2 Abdomen-normal bowel sounds, no hepatosplenomegaly Extremities-no cyanosis, clubbing, or edema Neuro-cranial nerves II through XII intact, motor and sensory function within normal limits, strength symmetrical, no focal deficits Psych-normal affect, normal mood Results & Data Results & Data Vital Signs (Past 12 Hours) Vital Signs Temp Pulse Pulse Resp BP Pulse Ox O2 Del Method 06/01/24 10:55 66 18 142/82 H 96 Room Air 06/01/24 08:31 36.8 C 77 18 143/91 H 96 Room Air 06/01/24 05:50 66 06/01/24 02:40 36.8 C 63 18 118/72 95 Room Air Laboratory Results 05/31/24 06:58 05/31/24 06:58 PG Care Time/CCT Total # of Minutes Spent Total Time Spent with Patient: Total time spent is greater than 50% in coordination of care (as documented) at patient's floor/unit and/or counseling patient: Coding Level of Care Code 53959 SUB INP/OBS CARE 2/35MIN Diagnoses Pre-syncope R55 Third degree atrioventricular block I44.2 Factor V deficiency D68.2
--- NOTE | 2024-06-02 07:33 | Pre Anesthesia Assessment ---
Date of Service June 02, 2024 Pre Sedation Assessment Vital Signs Temp Pulse Pulse Resp BP BP BP 06/02/24 07:14 70 18 169/100 H 06/02/24 03:00 36.8 C 71 16 124/75 06/01/24 23:11 36.8 C 71 16 127/75 06/01/24 21:59 71 06/01/24 19:31 36.5 C 72 18 169/91 H 06/01/24 15:57 36.9 C 70 19 145/86 H 06/01/24 13:30 74 06/01/24 10:55 66 18 142/82 H 06/01/24 08:31 36.8 C 77 18 143/91 H Pulse Ox O2 Del Method 06/02/24 07:14 95 Room Air 06/02/24 03:00 95 Room Air 06/01/24 23:11 94 Room Air 06/01/24 21:59 06/01/24 19:31 98 Room Air 06/01/24 15:57 94 Room Air 06/01/24 13:30 06/01/24 10:55 96 Room Air 06/01/24 08:31 96 Room Air Cardiovascular + regular rate and + regular rhythm Respiratory + respiratory effort normal Pre-Sedation Airway Assessment Smoking Status: Never smoker Hx Sleep Apnea: No Hx Difficult Intubation: No Short, Thick Neck: No Thyromental Distance: > or= 3.5 Finger Breadths Oral Cavity: + WNL Mallampati Class: III ASA: ASA3 NPO Status Date of Last Intake of Solid Food: 06/01/24 Procedure Planning Contraindications for Sedation: none Current Medications Reviewed: Yes Notes The planned sedation has been discussed with the patient. Informed Consent was obtained. I have identified the patient, determined the appropriateness of sedation and have assessed the patient immediately prior to the procedure. All medicine(s) and interventions are by my order.
[2024-06-02] MEDS: BUPIVACAINE 0.25% PF 30 ML VIAL ONE (08:08)
[2024-06-02] MEDS: LIDOCAINE 1% LOCAL 20 ML VIAL ONE (08:08)
[2024-06-02] MEDS: WATER, STERILE FOR INJ 10 ML VIAL ONE (08:08)
[2024-06-02] MEDS: VANCOMYCIN HCL 1000MG/20ML VIAL ONE (08:08)
[2024-06-02] MEDS: ceFAZolin 330 MG/ML 1 GM VIAL ONE (08:09)
[2024-06-02] MEDS: diphenhydrAMINE 50 MG/ML VIAL ONE (08:37)
[2024-06-02] MEDS: fentaNYL citrate PF 100 MCG/2 ML VIAL ONE (09:00)
[2024-06-02] MEDS: MIDAZOLAM HCL 5 MG/ML 1 ML VIAL ONE (09:01)
--- NOTE | 2024-06-02 09:12 | Electrophysiology Report ---
Date of Service June 02, 2024 Electrophysiology Procedure Electrophysiology Procedure Report Procedure performed: Implantation of dual-chamber permanent pacemaker Staff foreman/pile driving and erection: Mathieu Kelly MD Indication: The patient is a 69-year-old woman who was admitted with presyncope and intermittent heart block. She was felt to be a good candidate for a permanent pacemaker due to symptomatic nonreversible AV node dysfunction. A dual-chamber device was selected as she is currently in sinus rhythm and wished to maintain AV synchrony. Procedure in detail: The patient was informed of the risks benefits and alternatives to the intended procedure and she wished to proceed. She was taken to the electrophysiology suite in a fasting state. A preoperative antibiotic had been administered. The patient was monitored electrocardiographically throughout today's procedure and conscious sedation was administered per protocol. The left upper pectoral area was prepped and draped in usual sterile fashion. This area was anesthetized using subcutaneous administration of a xylocaine solution. An incision was made at this site and carried down to the prepectoralis fascia using sharp dissection. Electrocautery was also employed for dissection as well as for hemostasis. A device pocket was fashioned tissues above the pectoralis muscle. Subsequent to this maneuver the left axillary vein was accessed using modified Seldinger technique. A sheath was placed over guidewire and used to facilitate passage of a guiding catheter for mapping of the interventricular septum. Once an appropriate location was identified a pacing lead was advanced into the interventricular septum until the appropriate electrophysiologic characteristics were obtained. At this point the guiding catheter was removed. The proximal portion of the lead was then sutured the prepectoralis fascia using nonabsorbable suture. A sheath was placed over the remaining guidewire and used to facilitate passage of a pacing lead to the right atrium under fluoroscopic guidance. Adequate sensing and threshold parameters were obtained prior to active fixation of this lead to the endocardial surface. The proximal portion of the leads were then sutured the prepectoral fascia using nonabsorbable suture. The device pocket was irrigated with antibiotic solution. The leads were then attached to the device. The device and leads were then placed in the pocket and pocket was closed in 3 layers of absorbable suture. Steri-Strips and sterile dressing were applied. The device was tested noninvasively prior to conclusion the procedure. The patient tolerated procedure well there no immediate complications. Equipment used: New pulse generator: [employer]. Model number: [id number] serial number [id number] Right atrial lead: [employer]. Model number: 5076 serial number [id number] Right ventricular lead: [employer]. Model number: 3830 serial number [id number] Measured data: Right atrial lead: P waves measured 2.4 mV. Pacing threshold was 0.75 V at 0.4 ms with a pacing appearance of 798 ohms Right ventricular lead: R waves measured 12.1 mV. Pacing threshold was 0.75 V at 0.4 ms with a pacing impedance of 741 ohms Impression: Successful implantation of dual-chamber permanent pacemaker with left bundle pacing lead [facility] Electrophysiology codes Pacing Procedure 1: Pacin Insert/Replace Pacer A & V PG Moderate Sedation Codes Moderate Sedation Codes Procedure 1: Sedation/Anesthesia: 95589 Mod Sedation by the same physician;Init15 Min Child Age 5 & Up Procedure 2: Sedation/Anesthesia: 48520 Mod Sedation by the same physician; Ea [id number] Minutes
--- NOTE | 2024-06-02 09:12 | Post Anesthesia Assessment ---
Date of Service June 02, 2024 Post Sedation Assessment Vital Signs Temp Pulse Pulse Resp BP BP BP 06/02/24 07:14 70 18 169/100 H 06/02/24 03:00 36.8 C 71 16 124/75 06/01/24 23:11 36.8 C 71 16 127/75 06/01/24 21:59 71 06/01/24 19:31 36.5 C 72 18 169/91 H 06/01/24 15:57 36.9 C 70 19 145/86 H 06/01/24 13:30 74 06/01/24 10:55 66 18 142/82 H Pulse Ox O2 Del Method 06/02/24 07:14 95 Room Air 06/02/24 03:00 95 Room Air 06/01/24 23:11 94 Room Air 06/01/24 21:59 06/01/24 19:31 98 Room Air 06/01/24 15:57 94 Room Air 06/01/24 13:30 06/01/24 10:55 96 Room Air Recovery Score Activity: Moves 4 extremities Respiration: Deep Breath/Cough Circulation: +/-20% PreAnes Value Consciousness: Arouseable (by name) Oxygen Saturation: O2 needed for >90% Discharge Sedation Level of Care: Fast Track Phase II Post Sedation Plan On clinical assessment, the patient appears to have tolerated the sedation without complications. Patient is recovering as anticipated. Patient will continue to be monitored by nursing and may be discharged when sedation discharge criteria are met per below protocol. Upon Completions of procedure up to 15 minutes continue every 5 minute vital signs and the P.A.R. score; then discharge to a Phase I or Fast Track to Phase II per the following guidelines: * Discharge Patient to appropriate Phase II area if PAR is 8 or greater or return to pre- procedure baseline. The post - procedure orders will be as directed. * If PAR score is less than 8 or not return to pre-procedure baseline then patient will follow Phase I monitoring till PAR is reached for Phase II. The Phase I may be done in procedure room or may call to secure a Phase I area. * If naloxone or flumazenil are used for reversal, hold in Phase I for continued monitoring from when last reversal dose was given for a minimum of 60 minutes or longer pending the nurse and/or physician discretion of patient condition before discharge to Phase II. Please call the Sedation Physician to re-evaluate and complete post-note for discharge to Phase II area. Do NOT discharge from procedure sedation or Phase 1 until post- sedation evaluation note is complete by procedure /sedation MD Sedation Discharge Instructions to be given to the patient at discharge to home.
[2024-06-02 10:02] VITALS: O2SAT 96
--- NOTE | 2024-06-02 10:52 | Electrocardiogram Report ---
Test Reason : Blood Pressure : */* mmHG Vent. Rate : 69 BPM Atrial Rate : 69 BPM P-R Int : 176 ms QRS Dur : 110 ms QT Int : 434 ms P-R-T Axes : 58 -64 88 degrees QTcB Int : 465 ms AV dual-paced rhythm with occasional , and consecutive sinus complexes and with occasional Premature ventricular complexes Abnormal ECG When compared with ECG of 29-May-2024 21:30, Electronic ventricular pacemaker has replaced Sinus rhythm Confirmed by Bryan Nieto ([id number]) on 06/02/2024 10:52:17 AM Referred By: REFERRED SELF Confirmed By: Bryan Nieto
[2024-06-02 11:05] LABS: Basophils # (auto) 0.05 K/uL (0.00-0.20); Basophils % (auto) 0.7 %; Eosinophils # (auto) 0.17 K/uL (0.00-0.50); Eosinophils % (auto) 2.2 %; Hematocrit (blood only) 45.5 % (37.0-47.0); Hemoglobin 15.5 g/dl (12.0-16.0); Immature Granulocytes # (auto) 0.03 K/uL (0.01-0.20); Immature Granulocytes % (auto) 0.4 %; Lymphocytes # (auto) 1.91 K/uL (1.20-3.40); Lymphocytes % (auto) 25.3 %; Mean Corpuscular Hemoglobin 28.7 pg (25.0-34.0); Mean Corpuscular Hgb Conc 34.1 g/dL (32.0-36.0); Mean Corpuscular Volume 84.3 fL (80.0-100.0); Mean Platelet Volume 10.6 fL (9.4-12.4); Monocytes # (auto) 0.57 K/uL (0.11-0.59); Monocytes % (auto) 7.5 %; Neutrophils # (auto) 4.83 K/uL (1.40-6.50); Neutrophils % (auto) 63.9 %; Platelet Count 209 K/uL (130-400); RDW Coefficient of Variation 12.7 % (11.5-14.5); RDW Standard Deviation 38.6 fL (36.4-46.3); White Blood Count 7.56 K/ul (4.8-10.8)
[2024-06-02 11:09] LABS: Calcium 9.1 mg/dl (8.6-10.3); Potassium 4.2 mmol/L (3.5-5.1)
[2024-06-02 11:14] LABS: BUN Creatinine Ratio 19.8 (10-20); Creatinine Clr Calc Pharmacy 65.5 ml/min
[2024-06-02] MEDS: oxyCODONE HCL IR 5 MG TAB (IMMEDIATE RELEASE) PO PRN (13:53)
--- NOTE | 2024-06-02 14:22 | XRay Report ---
XR chest 2V PA/lateral CLINICAL HISTORY: EXACT TIME ORDERED Evaluate for pneumothorax and l TECHNIQUE: 2 views of the chest were obtained. Comparison: Comparison is made to chest radiograph 05/29/2024 FINDINGS: An implanted pacemaker is seen. The cardiomediastinal silhouette is normal. The lungs are clear. No e vidence of pleural effusion or pneumothorax. IMPRESSION: No acute chest disease. ACT 112: Negative or not required by law. Electronically signed by: Musa Mendoza M.D. 06/02/2024 2:21 PM
[2024-06-02 15:31] VITALS: RESP 96; TEMP 98.1
[2024-06-02 15:56] VITALS: BP 145/86
[2024-06-02 15:57] VITALS: PULSE 74
--- NOTE | 2024-06-09 22:07 | Discharge Summary ---
Discharge Summary Date of Service June 09, 2024 Principal Dx & Hospital Course #1 = Principal Diagnosis (1) Pre-syncope: Recurrent episodes of complete heart block with ventricular standstill. Telemetry. Cardiology consultation completed - PPM inserted this morning. Echo is normal. Thyroid profile is normal. Metoprolol has been resumed at discharge. Discussed with cardiology, OK to discharge home today. (2) Third degree atrioventricular block: Transient complete heart block with ventricular standstill continues to occur and noted on telemetry strips. 1 episode approached 10 seconds and she was near syncopal. Metoprolol has been discontinued at admission due to heart block. Cardiology consultation appreciated. Permanent pacemaker insertion scheduled for June 02. Metoprolol is restarted after the pacemaker is in place for control of her recurrent SVT. 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 Will defer treatment to her PCP. Chest CTA on admission negative for PE Plan Discharge home. Outpatient cardiology follow up Admission HPI Per Admitting Provider Ainsley Mcnair is a pleasant 69yo female with history of paroxysmal SVT, hyperlipidemia, factor V Leiden and possible protein C deficiency presenting fr home with episodes of presyncope. Patient had an episode this afternoon around 11:00 where she felt lightheaded as though she was going to pass out. During this episode she denies chest pain, palpitations or nausea. She did have some tunneling of her vision and blacked out for a very short period of time but does not think that she actually lost consciousness. She had another episode around 1999 while at her son and [id number]'s house. Her [id number] checked her blood pressure at that time and found it to be elevated at 194/100. She repeated several minutes later her blood pressure remained elevated at 196/96. Patient was ill last week on 05/21 and 05/22 with a nonspecific viral illness. She reports dizziness, fevers, body aches initially then she developed a head cold. she does not feel as though she has completely recovered from this illness Patient denies fever, chills, chest pain, palpitations, shortness of breath. Denies abdominal pain, vomiting. Reports that she is eating well. In the ER patient with several episodes where she became dizzy. He seemed to be more frequent while she is laying on her left side. Noted to have heart block with dropped QRS complexes during her times of dizziness. Limited bedside echo performed by ER attending with no obvious structural abnormality Discharge Exam General-alert and oriented x3, no fever, no chills HEENT-head atraumatic and normocephalic, pupils equal and reactive to light, extraocular muscles intact Neck-no lymphadenopathy or thyromegaly, trachea midline Chest-clear to auscultation. No rales, wheezing or rhonchi Cardiac-regular rate and rhythm, normal S1 and S2 Abdomen-normal bowel sounds, no hepatosplenomegaly Extremities-no cyanosis, clubbing, or edema Neuro-cranial nerves II through XII intact, motor and sensory function within normal limits, strength symmetrical, no focal deficits Psych-normal affect, normal mood Discharge Plan Discharge Items Patient Disposition: Home - Self-Care Reason For Visit: PRE-SYNCOPE Discharge Diagnosis: Complete heart block Condition on Discharge: Good Activity: Per Instructions section Activity Comment: No lifting left arm above shoulder or behind back for 6 weeks Lifting: No more than 5 pounds and Wait until after follow-up appointment Lifting Comment: no strenous activity - lifting, pulling any thing heavy with left arm Bathing: Keep incision dry Bathing Comment: keep wound dry and steri-strip intact until f/u Sexual Activity: Wait until after follow-up appointment Driving/Machine Use: Resume 3 days after discharge Non-emergency contact: Primary Care Provider and Demo Event Specialist Call non-emergency contact if: you have any medication questions, your symptoms worsen and your pain is not controlled Follow-up/Referrals: Feliciano Naranjo MD [Primary Care Provider] - 06/16/24 2:30 pm Diet: Regular Addtl Attending Provider Instructions: Follow up with Dr Kelly 1 week Pending Studies at Discharge: No Stand-Alone Forms: My [employer], Smoking Cessation Medications and DC Order Prescriptions: Continued metoprolol succinate 25 mg tablet extended release 24 hr 25 mg PO DAILY Qty: 90 3RF Alive Once Daily Women 50 Plus 800-100 mcg tablet 1 tab PO DAILY aspirin 81 mg tablet,delayed release (DR/EC) 81 mg PO .COMPLEX Rx Instructions: 81 mg orally 3 x per week; vit [id number] fact-FA cmb #2 [Intrinsi E43-Judgdd] PO magnesium chloride 64 mg magnesium Tablet 64 mg PO DAILY Discharge Orders: Discharge Order (Routine); Ordered 06/02/24 Ordered By: Mary Alice Solorio/Other Patient Handouts: Incision Care: Chest, Pacemaker Implant Dc Admission Data Admit Date/Time: 05/30/24 00:38 Attending Provider: Mary Alice Curran Admit Provider: Susy Santana Primary Care Provider: Feliciano Naranjo Other Providers: Mathieu Kelly; Susy Santana Other Interventions: Discharge Summary Assessment (RN) Last Done: 06/02/24 15:54 Hospital Stay Data Consultations 05/30/24 00:12 ED Decision to Admit Stat 05/30/24 00:38 Consult Cardiology Routine Procedures Performed Operation Date: 06/02/24 07:30 Actual Procedures p Pacer with A/V Leads (Dual) - Mathieu Kelly MD Diagnostic Imagining Performed 05/30/24 00:39 CT angio chest PE protocol Stat 06/02/24 07:00 EP Lab Images for PACS ONCE Pending Results Patient Have Any Pending Studies at Discharge: No Discharge Instructions Given to Patient (Per Discharging Provider) Follow up with Dr Kelly 1 week Total Time Total Time Spent Total Time Spent (In Minutes): 45 min Coding Level of Care Code 45726 INP/OBS DISCH >30 MIN Diagnoses Pre-syncope R55 Third degree atrioventricular block I44.2 Factor V deficiency D68.2
== END 2024-06-02 17:03 | disposition home or self-care (01) | DRG 243 ==
LOC: ED 21:16 → 2S 05-30 00:38 → SUATTDRO 05-30 00:38 → 2S 05-30 03:42 → 2E 05-31 18:29